=== PATIENT | male | born 1930 | race Caucasian/White ===

== ENCOUNTER → 2017-07-06 | Outpatient (REF) | payer MEDICARE ==
[2017-07-07 14:33] LABS: TOTAL PROTEIN,RANDOM URINE 85.4 MG/DL (0.0-12.0)
== END ==
LOC: M LAB REF 13:27
DX: N18.3 Chronic kidney disease, stage 3 (moderate) (principal)
CPT/HCPCS: 84156

== ENCOUNTER 2017-08-30 06:33 | Outpatient (CLI) | payer MEDICARE ==
[~2017-08-30 06:33] MED LIST: HEPARIN 1,000 UNITS/ML 10ML VIAL (FOR RADIOLOGY& DIALYSIS ONLY) As Ordered; ISOVUE-300 61% 50ML VIAL (Q9967) As Ordered; MIDAZOLAM INJ 2 MG/2 ML VIAL (J2250) As Ordered; fentaNYL 100 MCG/2 ML INJECTION (J3010) As Ordered
[2017-09-09] MEDS ORDERED: HEPARIN 1,000 UNITS/ML 10ML VIAL (FOR RADIOLOGY& DIALYSIS ONLY) As Ordered ×2 (08:41)
[2017-09-09] MEDS ORDERED: ISOVUE-300 61% 50ML VIAL (Q9967) As Ordered ×2 (08:41)
[2017-09-09] MEDS ORDERED: fentaNYL 100 MCG/2 ML INJECTION (J3010) As Ordered ×2 (08:41)
[2017-09-09] MEDS ORDERED: MIDAZOLAM INJ 2 MG/2 ML VIAL (J2250) As Ordered ×2 (08:42)
== END 2017-09-09 | disposition home or self-care (01) ==
LOC: M IRPRO 06:33
DX: I72.8 Aneurysm of other specified arteries (principal); N18.9 Chronic kidney disease, unspecified
CPT/HCPCS: 36247

== ENCOUNTER → 2018-08-08 | Outpatient (CLI) | payer MEDICARE ==
--- NOTE | 2018-08-08 12:29 | REP ---
Bilateral lower extremity arterial Doppler ultrasound: History: Intermittent claudication bilateral legs. Findings: Ankle brachial indices could not be obtained on either side because of noncompressible vessels. 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 The popliteal arteries are patent. 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 The right popliteal artery aneurysm measures 4.9 centimeters in length by 2.4 cm anteroposterior . The left popliteal artery aneurysm measures 1.1 x 1.3 cm in transverse dimension. Arterial Doppler velocity chart right lower extremity: CF A 42 cm/S Profunda 24 Proximal SFA 42 Mid SFA 43 Distal SFA 59 Popliteal 21 Proximal AT A not seen Tibioperoneal trunk 24 Proximal GRAIN SAMPLER 33 Distal GRAIN SAMPLER 89 Distal AT A 21 Arterial Doppler velocity chart left lower extremity: CF A 58 cm/S Profunda 31 Proximal SFA 40 Mid SFA 50 Distal SFA 44 Popliteal 14 Proximal AT A 42 Tibioperoneal trunk 35 Small GRAIN SAMPLER 22 Distal GRAIN SAMPLER 47 Distal AT A occluded. Electronically Signed by Gary Cabello MD 08/08/2018 12:21 P
--- NOTE | 2018-08-08 12:43 | REP ---
Abdominal aortic sonography: History: Abdominal aortic aneurysm. Intermittent claudication bilaterally. Abdominal aortic sonographic findings: The abdominal aorta measures 2.6 x 2.4 cm in AP by transverse dimension respectively at the diaphragmatic hiatus. At the main renal artery level, these dimensions are 2.1 x 2.5 cm. At mid aorta, the aorta measures 2.0 x 2.3 cm. The distal aorta dimensions are 2.4 x 2.3 cm. Right and left common iliac arteries measure 1.4 cm in AP dimension each. Impression: No aneurysm seen. No periaortic disease noted. Electronically Signed by Gary Cabello MD 08/08/2018 03:45 P
== END ==
LOC: M RAD 09:09
PROVIDERS: ATTEND Surgery Vascular Surgery
DX: Z86.79 Personal history of other diseases of the circulatory system (principal); I70.213 Atherosclerosis of native arteries of extremities with intermittent claudication, bilateral legs